=== PATIENT | female | born 1960 | race Caucasian/White ===

== ENCOUNTER → 2017-05-21 | Outpatient (CLI) | payer OTHER ==
[~2017-05-21] MED LIST: ATEN-175 PO; CLON0.1D5 TD; GADAVIST IV PRN; LISI10TA PO; LRS10 PO; NAPR1TAB9 PO; OMEG5CAP PO; VSNOPS; [UNRECOGNIZED DRUG - OTHER]
--- NOTE | 2017-05-21 13:16 | DIAGNOSTIC IMAGING REPORT ---
MRA HEAD WITHOUT CONTRAST HISTORY: Mental status change CEREBRAL ARTHROSCLEROSIS, HEMIPLEGIA HEMIPARESIS TECHNIQUE: 3-D [id number] MRA of the brain was performed without contrast. 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 All remaining intracranial vessels are unremarkable. Minimal scattered atherosclerotic change throughout. IMPRESSION: 1. 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 2. Minimal scattered atherosclerotic change throughout all remaining intracranial vessels. 3. No significant change from the prior study. The above report was generated using voice recognition software. It may contain grammatical, syntax or spelling errors. Electronically signed by: Juan Luis Willoughby M.D. 05/21/2017 1:14 PM Dictated Date/Time: 05/21/2017 1:11 PM
--- NOTE | 2017-05-21 14:01 | DIAGNOSTIC IMAGING REPORT ---
MRI OF THE BRAIN COMBO CLINICAL HISTORY: Headache. Right-sided neck pain. COMPARISON STUDY: MRI of the brain dated 09/01/2015. TECHNIQUE: MRI of the brain was performed utilizing various T1 and T2-weighted sequences in the axial, sagittal, and coronal planes. Contrast-enhanced sequences were acquired following the administration of 6.5 cc of Gadavist. FINDINGS: Brain parenchyma: There our age-related involutional changes noting moderate subcortical and periventricular microangiopathic disease. Numerous small lacunar infarcts are identified throughout the cerebellum, and the right mellisa, and both thalami, and the basal ganglia. There is hemosiderin deposition seen within the right basal ganglia/internal capsule with mild associated volume loss end faint surrounding enhancement. This is best seen on axial T2-weighted image #13. There is no evidence of acute hemorrhage or mass effect. There is no restricted diffusion to suggest acute ischemia. No enhancing mass lesion is identified on the postcontrast images. Russo-white matter differentiation is preserved. No extra-axial fluid collection is seen. The cerebellar tonsils are normal in configuration. Ventricles, sulci, and cisterns: Prominent secondary to involutional change. Pituitary and sella: Unremarkable. Intracranial vasculature: Normal flow voids are maintained at the skull base. Orbits: The bony orbits are grossly intact. Orbital contents are normal in appearance noting bilateral ocular lens implants. Sinuses and mastoids: There is a right mastoid effusion. The left mastoid air cells and the paranasal sinuses are clear. Calvarium: Unremarkable. Cervical cord: Partially visualized cervical spinal cord is normal in morphology and signal intensity. IMPRESSION: 1. Hemosiderin deposition is identified within the right basal ganglia/internal capsule. This has not significantly changed dating back to 09/01/2015 and likely represents the sequelae of remote hemorrhage. Correlation with the medical history will be required. 2. Senescent changes and chronic lacunar infarct as above. There is no acute intracranial abnormality. Electronically signed by: Yo Yost M.D. 05/21/2017 2:00 PM Dictated Date/Time: 05/21/2017 1:26 PM
== END | disposition home or self-care (01) ==
LOC: C.MRIBC 12:10
PROVIDERS: ATTEND Psychiatry & Neurology Neurology
DX: I67.2 Cerebral atherosclerosis (principal); I69.254 Hemiplegia and hemiparesis following other nontraumatic intracranial hemorrhage affecting left non-dominant side; H53.453 Other localized visual field defect, bilateral; M25.519 Pain in unspecified shoulder; H43.811 Vitreous degeneration, right eye